=== PATIENT | male | born 1960 | race Caucasian/White ===

== ENCOUNTER → 2017-03-18 | Outpatient (CLI) | payer MEDICARE, BC ==
--- NOTE | 2017-03-18 15:41 | MR ---
EXAMINATION TYPE: MR brain wo con DATE OF EXAM: 03/18/2017 3:33 PM COMPARISON: 04/04/2015 HISTORY: Partial epilepsy with impairment of consciousness, hx of hydrocephalus, rt sided weakness/nu mbness T1-weighted sagittal, T2, FLAIR, and diffusion axial, and T2 coronal coronal views of the brain are s ubmitted. There is no evidence of acute ischemia. Persistent ventricular dilation which appears stable from the previous exam suggestive of significant hydronephrosis. Diffuse confluent density seen throughout th e white matter bilaterally which could been the basis of remote microvascular ischemia or transependy mal edema. Overall the degree of ventricular dilation stable. Prominent posterior fossa cyst remains stable. Giant cisterna magna in the differential diagnosis. Da ndy-Walker variant as previously noted felt less likely. Arachnoid cyst also a consideration. Craniocervical junction maintained. Sella turcica has a normal appearance. No cerebellopontine angle mass. Tiny area of abnormal signal seen within the felicia suggestive of tiny areas remote ischemia. IMPRESSION: 1. No acute intracranial process. Ventricular dilation is stable compatible with hydrocephalus. Degen erative and nonspecific white matter changes are also stable as discussed above.
== END | disposition home or self-care (01) ==
LOC: RADMRIMAIN 14:27
PROVIDERS: ATTEND Psychiatry & Neurology Neurology
DX: G31.89 Other specified degenerative diseases of nervous system (principal)
CPT/HCPCS: 70551